=== PATIENT | male | born 1950 | race Caucasian/White ===

== ENCOUNTER 2021-11-03 00:55 | Day surgery (SDC) | payer MEDICARE, SELFPAY ==
[2021-10-17 14:36] VITALS: BMI 26.6
[2021-11-03 06:41] VITALS: BP 139/82; PULSE 75; RESP 18; TEMP 36.4; O2SAT 100
[2021-11-03] MEDS: LACTATED RINGERS 1,000 ML 150 ML IV CONT (06:50)
--- NOTE | 2021-11-03 07:46 | P.PNAN_ITS ---
Anes - Initial Pre Proc Eval Procedure: Operation Date: 11/03/21 08:00 Proposed Procedures p Screening Colonoscopy - John Baez MD Date/Time: 11/03/21 07:46 Surgeon: John Baez MD Pre Op Diagnosis: hx of colon polyps Patient Data Age: 71 Gender: M Height: 1.88 m Weight: 91.4 kg Last Vital Signs Temp 97.5 F L 11/03/21 06:41 Pulse 75 11/03/21 06:41 Resp 18 11/03/21 06:41 BP 139/82 11/03/21 06:41 Pulse Ox 100 11/03/21 06:41 O2 Del Method Room Air 11/03/21 06:41 Allergies Allergy/AdvReac Type Severity Reaction Status Date / Time bee venom protein (honey bee) Allergy Intermediate Swelling Verified 11/03/21 06:39 Penicillins Allergy Unknown allergic Verified 11/03/21 06:39 Home Medications Medication Instructions Recorded Confirmed Type ascorbic acid (vitamin C) 500 mg 500 mg PO BID 30 days #60 tabs 01/21/21 11/03/21 Rx tablet cholecalciferol (vitamin D3) 50 50 mcg PO DAILY 30 days #30 caps 01/21/21 11/03/21 Rx mcg (2,000 unit) capsule zinc 50 mg tablet 50 mg PO DAILY 30 days #30 tabs 01/21/21 11/03/21 Rx sildenafil 100 mg tablet (Viagra) 100 mg PO DAILY PRN sexual 04/15/21 11/03/21 Rx activity #12 tabs Patient hx anesthesia problems: none Family hx anesthesia problems: none Results Review: All pre-operative results and documents have been reviewed as part of the pre- operative evaluation. [facility] Surgical History Surgical History History of appendectomy (~1981) History of cholecystectomy (~2005) Family History Family History Sibling Family history of mental disorder Mother Patient's mother is Father Family history of lung cancer Other Family history of cardiovascular disease Family history of glaucoma Social History Social History (Updated 05/18/21 @ 10:53 by Deyanira Bynum CMA) Smoking status: Never smoker Second hand tobacco smoke exposure: No Alcohol intake: never Substance use: never Substance use type: does not use Living arrangements: with family Gender identity (if verbalized by the patient): Male Spiritual care concerns: No Anes - Eval Final PreProcedure Day of Procedure 11/03/21 07:46 Patient weight: overweight Heart: regular rate and rhythm Lungs: clear to auscultation Airway: Mallampati scale class II Neurological: alert and oriented Last oral intake: >/= 8 hours ASA classification: II Emergent: no Anesthetic plan: proceed Anesthesia type and monitoring: general GIVS and standard monitoring Results Review: All pre-operative results and documents have been reviewed as part of the pre- operative evaluation. Informed Consent: The patient's anesthetic plan and its attendant risks and benefits were discussed with the patient/family/POA. Questions were solicited and answers provided to the satisfaction of the patient/family/POA.
--- NOTE | 2021-11-03 07:57 | P.HP_ITS ---
H&P: HPI History of Present Illness Date/Time: 11/03/21 07:57 Chief Complaint: History of colon polyps. Narrative: This is a 71-year-old white male patient presents for screening colonoscopy. Patient has a history of colon polyps. Most recent colonoscopy 2017 showed an adenoma. Patient's current weight appetite bowel movements are normal. He denies abdominal pain. He has had no bleeding. He presents today for screening colonoscopy. Review of Systems Review of Systems: Review of systems noncontributory. [facility] Surgical History Surgical History History of appendectomy (~1981) History of cholecystectomy (~2005) Family History Family History Sibling Family history of mental disorder Mother Patient's mother is Father Family history of lung cancer Other Family history of cardiovascular disease Family history of glaucoma Social History Social History (Updated 05/18/21 @ 10:[address] [facility]) Smoking status: Never smoker Second hand tobacco smoke exposure: No Alcohol intake: never Substance use: never Substance use type: does not use Living arrangements: with family Gender identity (if verbalized by the patient): Male Spiritual care concerns: No Meds Home Medications and Allergies Home Medications Medication Instructions Recorded Confirmed Type ascorbic acid (vitamin C) 500 mg 500 mg PO BID 30 days #60 tabs 01/21/21 11/03/21 Rx tablet cholecalciferol (vitamin D3) 50 50 mcg PO DAILY 30 days #30 caps 01/21/21 11/03/21 Rx mcg (2,000 unit) capsule zinc 50 mg tablet 50 mg PO DAILY 30 days #30 tabs 01/21/21 11/03/21 Rx sildenafil 100 mg tablet (Viagra) 100 mg PO DAILY PRN sexual 04/15/21 11/03/21 Rx activity #12 tabs Allergies Allergy/AdvReac Type Severity Reaction Status Date / Time bee venom protein (honey bee) Allergy Intermediate Swelling Verified 11/03/21 06:39 Penicillins Allergy Unknown allergic Verified 11/03/21 06:39 Vital Signs Vital Signs - 24 hr 11/03/21 06:41 Temperature 97.5 F L Pulse Rate 75 Respiratory Rate 18 Blood Pressure 139/82 Pulse Oximetry 100 Oxygen Delivery Room Air Exam Narrative: Physical exam reveals patient to be alert. Vital signs stable. HEENT exam is unremarkable. Patient is anicteric. Lungs are clear to auscultation and percussion. Heart is without murmur or extra sounds. Abdomin al exam bowel sounds are present soft nontender with no organomegaly. Digital external rectal exam is normal. Assessment and Plan Assessment and plan (1) Polyp of colon: Code(s): K63.5 - Polyp of colon Status: Acute Assessment and Plan: Patient has a prior history of colon polyp removed from the colon 2016. Plan is for surveillance colonoscopy at this time. Further recommendations will be given after endoscopy.
[2021-11-03 08:24] VITALS: BP 121/56; PULSE 70; RESP 16; O2SAT 99
[2021-11-03 08:34] VITALS: BP 110/68; PULSE 74; RESP 20; O2SAT 100
[2021-11-03 08:44] VITALS: BP 119/75; PULSE 69; RESP 19; O2SAT 99
== END 2021-11-03 09:00 | disposition home or self-care (01) ==
PROVIDERS: PCP Family Medicine; Visit Provider Internal Medicine Gastroenterology
PROC: 0DJD8ZZ Inspection of Lower Intestinal Tract, Via Natural or Artificial Opening Endoscopic (ICD-10-PCS; CPT 45378; principal; 2021-11-03 08:00)
DX: Z12.11 Encounter for screening for malignant neoplasm of colon (principal); K64.8 Other hemorrhoids; Z86.010 Personal history of colon polyps
CPT/HCPCS: G0105; J2704; J7120

== ENCOUNTER 2023-09-12 09:21 | Outpatient (CLI) | payer MEDICARE, SELFPAY ==
[2023-09-12 13:02] LABS: Basophils Percent Auto 0.8 % (0.2-1.2); Eosinophils Absolute Auto 0.1 K/mm3 (0-0.3); Eosinophils Percent Auto 2.6 % (0-4.4); Hematocrit 39.5 % (42.0-52.0); Hemoglobin 14.3 g/dL (14.0-18.0); Immature Granulocyte Absolute 0.02 K/mm3 (0.00-0.031); Immature Granulocyte Percent A 0.4 % (0-0.5); Lymphocytes Absolute Auto 1.97 K/mm3 (0.9-3.2); Lymphocytes Percent Auto 37.2 % (18.3-44.2); Mean Corpuscular HGB Conc 36.2 g/dl (32-36); Mean Corpuscular Hemoglobin 31.4 pg (26-34); Mean Corpuscular Volume 86.6 fl (80-100); Mean Platelet Volume 10.2 fl (7.4-10.4); Monocytes Absolute Auto 0.4 K/mm3 (0.1-0.6); Monocytes Percent Auto 7.2 % (2.6-8.5); Neutrophils Absolute Auto 2.7 K/mm3 (1.3-6.7); Neutrophils Percent Auto 51.8 % (45.5-73.1); Platelet Count Result 189 k/mm3 (150-375); Red Blood Count 4.56 M/mm3 (4.6-6.20); Red Cell Distribution Width 12.9 % (11.5-14.5); White Blood Count 5.3 K/mm3 (4.5-10.0)
[2023-09-12 13:09] LABS: Anion Gap 7 mmol/L (4-12); Blood Urea Nitrogen 13 mg/dL (9-20); Calcium 9.3 mg/dL (8.4-10.2); Carbon Dioxide 25 mmol/L (22-30); Chloride 108 mmol/L (98-107); Cholesterol 134 mg/dL (0-200); Estimated Glomerular Filt Rate > 60; Glucose 168 mg/dL (65-110); HDL Direct 27 mg/dL; Potassium 4.2 mmol/L (3.4-5.0); Sodium 140 mmol/L (137-145); Triglycerides 73 mg/dL (<150)
[2023-09-12 13:23] LABS: LDL Cholesterol Direct 101 mg/dL
[2023-09-12 17:57] LABS: Hemoglobin A1C 5.7 % (<5.7)
== END 2023-09-12 09:22 | disposition home or self-care (01) ==
LOC: ANHGOSHLAB 09:23
PROVIDERS: PCP Family Medicine; Visit Provider Nurse Practitioner Family
DX: R73.09 Other abnormal glucose (principal); R73.03 Prediabetes; E78.6 Lipoprotein deficiency; Z12.5 Encounter for screening for malignant neoplasm of prostate
CPT/HCPCS: 36415; 80048; 80061; 83036; 84153; 84443; 85025; G0103

== ENCOUNTER 2023-09-18 10:37 | Outpatient (CLI) | payer MEDICARE, SELFPAY ==
[2023-09-18 19:46] LABS: Glucose 128 mg/dL (65-110)
[2023-09-18 20:08] LABS: Hemoglobin A1C 5.7 % (<5.7)
== END 2023-09-18 10:38 | disposition home or self-care (01) ==
LOC: ANHGOSHLAB 10:39
PROVIDERS: PCP Family Medicine; Visit Provider Family Medicine
DX: R73.09 Other abnormal glucose (principal); R73.03 Prediabetes
CPT/HCPCS: 36415; 82947; 83036

== ENCOUNTER 2024-09-08 09:19 | Outpatient (CLI) | payer MEDICARE, SELFPAY ==
--- OUTSIDE RECORDS SUMMARY | 2024-09-08 10:07 | XMS_ITS | Clinical Summary ---
Author Organization [facility] Address [address] [place] [address] Phone Care Team Providers Care Rn Hyperbaric Name Role Phone Provider, Not On File Primary Care Provider Unav ailable Allergies Active Allergy Reactions Criticality Noted Date Comments Penicillins Hives 03/12/2010 Medications hydrocodone-acet aminophen 5-325 MG PO TABS Take 1-2 Tabs by mouth every 4 hours as needed for Pain. 20 Tab 0 03/12/2010 Active Social History Tobacco Use Types Packs/Day Years Used Date Smoking Tobacco: Never Alcohol Use Standard Drinks/Week Comments No 0 (1 standard drink = 0.6 oz pur e alcohol) Sex and Gender Information Value Date Recorded Sex Assigned at Not on file Legal Sex Male 3:55 AM [employer] Gender Identity Not on file Sexual Orientation Not on file Last Filed Vital Signs Vital Sign Reading Time Taken Comments Blood Pressure 138/81 03/12/2010 2:09 PM CDT Pulse 67 03/12/2010 2:09 PM CDT Temperature 36.7 C (98.1 F) 03/12/2010 2:09 PM CDT Respiratory Rate 18 03/12/2010 2:09 PM CDT Oxygen Saturation 98% 03/12/2010 2:09 PM CDT Inhaled Oxygen Concentration - - Weight 86.2 kg (190 lb) 03/12/2010 2:09 PM CDT Height 188 cm (6' 2 ) 03/12/2010 2:09 PM CDT Body Mass Index 24.39 03/12/2010 2:09 PM CDT Plan of Treatment Health Maintenance Due Date Last Done Comments Hepatitis C Virus (HCV) Screening 1950 Colonoscopy 1995 Colorectal Cancer Screening 1995 Cologuard 2000 Immunochemical Fecal Occult Blood 2000 Zoster Immunization (1 of 2) 2000 Influenza Immunization (#1) 02/03/202405/04, 05/17/2020, 05/15/2019, Additional history exists SARS-COV-2 Immunization (2023- season) 2024 Respiratory Syncytial Virus (RSV) Immunization (Adult) (1 - 1-dose 75+ series) 2025 Pneumococcal Immunization (50+ years) Completed 05/15/2019, 05/07/2018 Pneumococcal Immunization Combined Discontinued 05/15/2019, 05/07/2018 DTaP/Tdap/Td Immunization Discontinued 04/01/2020 TdaP Immunization Completed 04/01/2020 Hepatitis B Immunization Aged Out No longer eligible based on patient's age to complete this topic Meningococcal Immunization (ACWY) Aged Out No longer eligible based on patient's age to complete this topic Rotavirus Immunization Aged Out No lo nger eligible based on patient's age to complete this topic Insurance [facility] Care Teams Rn Hyperbaric Relationship Specialty Start Date End Date Provider, Not On File [place] PCP - General 03/12/10
[2024-09-08 12:14] LABS: Alanine Aminotransferase 17 U/L (6-50); Albumin Level 4.3 g/dL (3.5-5.1); Alkaline Phosphatase 61 U/L (38-126); Anion Gap 8 mmol/L (4-12); Aspartate Amino Transferase 32 U/L (17-59); Blood Urea Nitrogen 12 mg/dL (9-20); Calcium 9.1 mg/dL (8.4-10.2); Carbon Dioxide 26 mmol/L (22-30); Chloride 107 mmol/L (98-107); Cholesterol 134 mg/dL (0-200); Estimated Glomerular Filt Rate > 60; Glucose 150 mg/dL (65-110); HDL Direct 30 mg/dL; Potassium 4.6 mmol/L (3.4-5.0); Sodium 141 mmol/L (137-145); Triglycerides 81 mg/dL (<150)
[2024-09-08 12:25] LABS: LDL Cholesterol Direct 89 mg/dL
[2024-09-08 12:36] LABS: Basophils Absolute Auto 0.1 K/mm3 (0.0-0.1); Eosinophils Absolute Auto 0.1 K/mm3 (0-0.3); Eosinophils Percent Auto 2.6 % (0-4.4); Hematocrit 41.7 % (42.0-52.0); Hemoglobin 14.8 g/dL (14.0-18.0); Immature Granulocyte Absolute 0.01 K/mm3 (0.00-0.031); Immature Granulocyte Percent A 0.2 % (0-0.5); Lymphocytes Absolute Auto 2.31 K/mm3 (0.9-3.2); Lymphocytes Percent Auto 45.4 % (18.3-44.2); Mean Corpuscular HGB Conc 35.5 g/dl (32-36); Mean Corpuscular Hemoglobin 30.8 pg (26-34); Mean Corpuscular Volume 86.9 fl (80-100); Mean Platelet Volume 10.4 fl (7.4-10.4); Monocytes Absolute Auto 0.4 K/mm3 (0.1-0.6); Monocytes Percent Auto 8.1 % (2.6-8.5); Neutrophils Absolute Auto 2.2 K/mm3 (1.3-6.7); Neutrophils Percent Auto 42.7 % (45.5-73.1); Platelet Count Result 169 k/mm3 (150-375); Red Cell Distribution Width 13.9 % (11.5-14.5); White Blood Count 5.1 K/mm3 (4.5-10.0)
[2024-09-08 15:27] LABS: Hemoglobin A1C 6.2 % (<5.7)
== END 2024-09-08 09:20 | disposition home or self-care (01) ==
LOC: ANHGOSHLAB 09:20
PROVIDERS: PCP Family Medicine; Visit Provider Nurse Practitioner Family
DX: R73.09 Other abnormal glucose (principal); E78.6 Lipoprotein deficiency; R73.03 Prediabetes; E78.5 Hyperlipidemia, unspecified; Z12.5 Encounter for screening for malignant neoplasm of prostate; G47.9 Sleep disorder, unspecified; R73.01 Impaired fasting glucose; C44.92 Squamous cell carcinoma of skin, unspecified
CPT/HCPCS: 36415; 80053; 80061; 83036; 84153; 84443; 85025; G0103

== ENCOUNTER 2025-03-18 11:14 | Outpatient (CLI) | payer MEDICARE, SELFPAY ==
[2025-03-18 14:09] LABS: Hemoglobin A1C 5.5 % (<5.7)
== END 2025-03-18 11:15 | disposition home or self-care (01) ==
PROVIDERS: PCP Family Medicine; Visit Provider Family Medicine
DX: R73.03 Prediabetes (principal)
CPT/HCPCS: 36415; 83036